=== PATIENT | male | born 1990 | race Caucasian/White ===

== ENCOUNTER 2020-04-18 22:27 | Emergency (ER) | payer OTHER ==
[2020-04-19 00:11] LABS: CORONAVIRUS 2019 SARS-COV-2 NEGATIVE (NEGATIVE); INFLUENZA A NAA NEGATIVE (NEGATIVE)
[2020-04-19] MEDS ORDERED: ALLEGRA-D 12 H1 EACH PO (00:35)
[2020-04-20] MEDS ORDERED: ONDANSETRON ODT4 MG PO (11:39)
[2020-04-20] MEDS ORDERED: CLEOCIN300 MG PO (11:39)
[2020-06-25] MEDS ORDERED: BUPRENORPHIN-N1 EACH PO (13:22)
[2020-06-25] MEDS ORDERED: METRONIDAZOLE500 MG PO (13:23)
[2020-06-25] MEDS ORDERED: CLEOCIN300 MG PO (13:23)
== END 2020-04-19 00:48 | disposition home or self-care (01) ==
LOC: FER 22:27
PROVIDERS: Emergency Medicine
DX: J06.9 Acute upper respiratory infection, unspecified (principal); I10 Essential (primary) hypertension; F17.200 Nicotine dependence, unspecified, uncomplicated; Z79.899 Other long term (current) drug therapy; Z88.0 Allergy status to penicillin; Z20.822 Contact with and (suspected) exposure to COVID-19
CPT/HCPCS: 87880; 99283; U0002

== ENCOUNTER 2020-04-20 09:16 | Emergency (ER) | payer OTHER ==
[~2020-04-20 09:16] MED LIST: ALLEGRA-D 12 H1 EACH PO
[2020-04-20 10:18] LABS: BASOPHIL 0.3 % (0-2); EOSINOPHIL 0.4 % (0-5); HGB 14.6 g/dl (13.2-18.0); LYMPHOCYTE 22.8 % (15-48); MCH 29.6 pg (25.0-31.0); MONOCYTE 7.4 % (0-12); MPV 10.7 fL (6.0-9.5); NEUTROPHIL 68.8 % (41-80); NRBC 0; PLT 171 K/uL (150-400); RBC 4.94 M/uL (4.70-6.00); RDW 13.5 % (11.5-14.0); WBC 11.7 K/uL (4.0-10.5)
[2020-04-20 10:47] LABS: ALBUMIN 3.8 g/dL (3.4-5.0); BILIRUBIN - TOTAL 0.5 mg/dL (0.2-1.0); BUN/CREAT RATIO (CALC) 13.6 RATIO; CREATININE 0.88 mg/dL (0.67-1.17); GLOBULIN (CALCULATION) 4.4 g/dL; POTASSIUM 3.9 mmol/L (3.5-5.1); TOTAL PROTEIN 8.2 g/dL (6.4-8.2)
[2020-04-20] MEDS ORDERED: ONDANSETRON ODT4 MG PO (11:39)
[2020-04-20] MEDS ORDERED: CLEOCIN300 MG PO (11:39)
[2020-06-25] MEDS ORDERED: BUPRENORPHIN-N1 EACH PO (13:22)
[2020-06-25] MEDS ORDERED: CLEOCIN300 MG PO (13:23)
[2020-06-25] MEDS ORDERED: METRONIDAZOLE500 MG PO (13:23)
== END 2020-04-20 11:40 | disposition home or self-care (01) ==
LOC: FER 09:16
PROVIDERS: Emergency Medicine
DX: K04.7 Periapical abscess without sinus (principal); K02.9 Dental caries, unspecified; L03.211 Cellulitis of face; Z88.0 Allergy status to penicillin; Z20.822 Contact with and (suspected) exposure to COVID-19
CPT/HCPCS: 36415; 80053; 85025; 96372; U0002

== ENCOUNTER 2020-06-09 17:46 | Emergency (ER) | payer OTHER ==
[~2020-06-09 17:46] MED LIST changes: +CLEOCIN300 MG PO; +ONDANSETRON ODT4 MG PO
[2020-06-25] MEDS ORDERED: BUPRENORPHIN-N1 EACH PO (13:22)
[2020-06-25] MEDS ORDERED: METRONIDAZOLE500 MG PO (13:23)
[2020-06-25] MEDS ORDERED: CLEOCIN300 MG PO (13:23)
== END 2020-06-09 19:00 | disposition left against medical advice (07) ==
LOC: FER 17:46
DX: I20.8 Other forms of angina pectoris (principal); Z53.8 Procedure and treatment not carried out for other reasons

== ENCOUNTER → 2020-07-01 | Day surgery (SDC) | payer OTHER ==
[~2020-07-01] MED LIST changes: +BUPRENORPHIN-N1 EACH PO; +METRONIDAZOLE500 MG PO
== END | disposition home or self-care (01) ==
LOC: FAS 07:17
DX: K02.63 Dental caries on smooth surface penetrating into pulp (principal); K05.30 Chronic periodontitis, unspecified; K01.1 Impacted teeth; Z86.59 Personal history of other mental and behavioral disorders; Z20.822 Contact with and (suspected) exposure to COVID-19; Z88.0 Allergy status to penicillin; Z88.1 Allergy status to other antibiotic agents
CPT/HCPCS: J1100; J2405; J2704; J3010; J7120

== ENCOUNTER 2021-10-27 08:01 | Emergency (ER) | payer OTHER | END 2021-10-27 08:53 | disposition home or self-care (01) | LOC: FER 08:01 | DX: J04.0 Acute laryngitis (principal); Z88.0 Allergy status to penicillin | CPT/HCPCS: 99283; J1030 ==

== ENCOUNTER 2021-11-19 09:41 | Emergency (ER) | payer OTHER ==
[2021-11-19 10:32] LABS: BILIRUBIN NEGATIVE (NEGATIVE); BLOOD NEGATIVE Ery/uL (NEGATIVE); CLARITY CLEAR (CLEAR); COLOR YELLOW (YELLOW); GLUCOSE (U) NORMAL (NORMAL); LEUKOCYTES NEGATIVE Leu/uL (NEGATIVE); NITRITE NEGATIVE (NEGATIVE); PROTEIN NEGATIVE (NEGATIVE); SPECIFIC GRAVITY 1.025 (1.001-1.030)
[2021-11-19 10:37] LABS: BASOPHIL 0.3 % (0-2); EOSINOPHIL 1.3 % (0-5); HCT 42.1 % (42.0-52.0); HGB 15.5 g/dl (13.2-18.0); LYMPHOCYTE 49.2 % (15-48); MCH 31.3 pg (25.0-31.0); MCHC 36.8 g/dL (32.0-36.0); MCV 84.9 fL (78.0-100.0); MONOCYTE 8.3 % (0-12); NEUTROPHIL 40.3 % (41-80); NRBC 0; RBC 4.96 M/uL (4.70-6.00); RDW 12.4 % (11.5-14.0); WBC 7.2 K/uL (4.0-10.5)
[2021-11-19 10:56] LABS: PLT 183 K/uL (150-400)
[2021-11-19 11:54] LABS: ALBUMIN 4.2 g/dL (3.4-5.0); BILIRUBIN - TOTAL 0.8 mg/dL (0.2-1.0); BUN/CREAT RATIO (CALC) 25.9 RATIO; CREATININE 0.81 mg/dL (0.67-1.17); GLOBULIN (CALCULATION) 3.4 g/dL; TOTAL PROTEIN 7.6 g/dL (6.4-8.2)
[2021-11-19] MEDS ORDERED: UROCIT-K10 MEQ PO (12:01)
[2021-11-19] MEDS ORDERED: COLACE100 MG PO (12:01)
== END 2021-11-19 12:33 | disposition home or self-care (01) ==
LOC: FER 09:41
PROVIDERS: Emergency Medicine
DX: K59.00 Constipation, unspecified (principal); R10.32 Left lower quadrant pain; F17.210 Nicotine dependence, cigarettes, uncomplicated; Z88.0 Allergy status to penicillin
CPT/HCPCS: 36415; 80053; 81003; 82150; 83690; 85025